=== PATIENT | male | born 1990 | race Caucasian/White ===

== ENCOUNTER 2023-03-22 09:02 | Outpatient (AMB) | payer BC, SELFPAY ==
--- NOTE | 2023-03-22 09:06 | MHC.PC.OV ---
Vital Signs 03/22/23 09:09 Height 5 ft 10 in Weight 273 lb 8 oz BMI 39.2 BP 124/70 Blood Pressure Location Rt brachial Position Sitting Respiration 12 Pulse 70 Pulse Source Pulse Oximeter Temp 97.9 F Temp Source Oral Pulse Oximetry (%) 99 Intake Visit Reasons: New patient-Requesting physical Intake Note: Patient is here as a new patient, concerned about snoring. Would like to get a sleep study. Allergies Penicillins Allergy (Unknown, Verified 03/22/23 09:46) Unknown Sulfa (Sulfonamide Antibiotics) Allergy (Unknown, Verified 03/22/23 09:46) unkown Medication List - Last Reconciled 03/22/23 by Raheem Cueto CNP No Known Home Meds Tobacco use date assessed: 03/22/23 Dental Screening Dental Screen Date: 03/22/23 Did you have a dental visit in the last 12 months?: Yes Did you have a dental problem in the last 6 months where you did not have access to dental care?: No Was dental information given to patient?: Patient has dentist HPI HPI Comments History of Present Illness Details 32-year-old male presents to establish care He notes he was last evaluated by his former PCP, [facility], and had blood work done 4 years ago No significant PMH Not on prescription medication He notes that his girlfriend complains about his snoring during his sleep. He notes he has been snoring for the past 3-4 years. He states he is sexually active, in a monogamous relationship, and has no concerns for STD. [facility] Medical History (Updated 03/22/23 @ 10:11 by Raheem Cueto CNP) Thumb injury High blood pressure Family History (Updated 03/22/23 @ 09:22 by Sarah Diamond CMA) Mother High blood pressure High cholesterol Kidney stones Mental health disorder Father High blood pressure Paternal Uncle Substance abuse Maternal Uncle Substance abuse Paternal Aunt Mental health disorder Social History Housing: House Patient Tobacco Use Status: Never used Tobacco e-Cigarette/Vaping Use: Never Used service: No Current occupational status: employed Current occupation: [employer] Cognitive needs: No Hearing needs: No Vision needs: Yes (wears prescription glasses) Questionnaire PHQ-9 Over the last 2 weeks, how often have you been bothered by any of the following problems? 1. Little interest or pleasure in doing things: several days 2. Feeling down, depressed, or hopeless: not at all 3. Trouble falling or staying asleep, or sleeping too much: several days 4. Feeling tired or having little energy: several days 5. Poor appetite or overeating: not at all 6. Feeling bad about yourself - or that you are a failure or have let yourself or your family down: not at all 7. Trouble concentrating on things, such as reading the newspaper or watching television: not at all 8. Moving or speaking so slowly that other people could have noticed. Or the opposite - being so fidgety or restless that you have been moving around a lot more than usual: not at all 9. Thoughts that you would be better off or of hurting yourself in some way: not at all Total score: 3 Depression Screening Interpretation: Negative Source: Developed by Drs. Kevin Mcdaniel, Casi Reyez, Khai Harper and colleagues, with an educational ira from [employer]. Thrive Questionnaire I am a: Patient What is your living situation today?: I have a steady place to live Within the past 12 months, did the food you bought not last and you didn't have the money to get more?: Never true Within the past 12 months, did you worry whether your food would run out before you got money to buy more?: Never true Do you have trouble paying for medicines?: No Do you have trouble getting transportation to medical appointments?: No Do you have trouble paying your heating and electricity bill?: No Do you have trouble taking care of your child, family member or friend?: No Do you have trouble with day-to-day activities such as bathing, preparing meals, shopping, managing finances, etc.?: No Are you currently unemployed and looking for a job?: No Are you interested in more education?: No AUDIT C Alcohol Use Questionnaire (AUDIT-C) 1. How often do you have a drink containing alcohol?: Monthly or less 2. How many drinks containing alcohol do you have on a typical day when you are drinking?: 1 or 2 3. How often do you have six or more drinks on one occasion?: Never Total Score: 1 KLAUDIA-7 AMB Questionnaire KLAUDIA-7 Feeling nervous, anxious, or on edge: 1 = Several days Not being able to stop or control worryin = Several days Worrying too much about different things: 1 = Several days Trouble relaxin = Not at all Being so restless that it is hard to sit still: 0 = Not at all Becoming easily annoyed or irritable: 1 = Several days Feeling afraid as if something awful might happen: 0 = Not at all Total KLAUDIA-7 score (0-4 normal; 5-9 mild; 10-14 moderate; 15-21 severe): 4 Source: Developed by Drs. Kevin Mcdaniel, Casi Reyez, Khai Harper and colleagues, with an educational ira from [employer]. Review of Systems Const Details: Denies chills, Denies fatigue, Denies fever(s), Denies headache(s) and Denies weakness HEENT Denies change in vision, Denies dizziness, Denies headache(s), Denies hearing loss, Denies nasal congestion, Denies sinus pain, Denies sinus pressure and Denies sore throat Card Denies chest pain, Denies lightheadedness, Denies dyspnea and Denies other (palpitations) Resp Denies cough, Denies dyspnea and Denies wheezing GI Denies abdominal pain, Denies melena, Denies hematochezia, Denies change in bowel habits, Denies dyspepsia and Denies nausea Denies hematuria and Denies dysuria Musc Denies abnormal gait, Denies myalgias, Denies arthralgias, Denies numbness and Denies tingling Skin/Breast Denies rash, Denies unusual bruising and Denies wounds Neuro Denies abnormal gait, Denies dizziness, Denies headache(s), Denies memory loss, Denies numbness, Denies Sensory deficit (Neuro), Denies tingling and Denies weakness Psych Denies anxiety, Denies depression and Denies memory loss Endo Denies cold intolerance, Denies fatigue, Denies heat intolerance, Denies polydipsia and Denies polyuria Luis/Lymph Denies easy bleeding and Denies easy bruising Aller/Immun Denies wheezing Physical exam (Primary Care) Vital Signs: Last Vital Signs Temp 97.9 F 03/22/23 09:09 Pulse 70 03/22/23 09:09 Resp 12 03/22/23 09:09 BP 124/70 03/22/23 09:09 Pulse Ox 99 03/22/23 09:09 BMI result Body Mass Index 39.2 Tobacco/Smoking Status: Tobacco use Status Tobacco use date assessed 03/22/23 03/22/23 09:27 Patient Tobacco Use Status Never used Tobacco 03/22/23 09:27 e-Cigarette/Vaping Use Never Used 03/22/23 09:27 PHQ-9: PHQ-9 Score PHQ-9: Total score 3 03/22/23 09:27 Depression Screening Interpretation: Negative Const Other: General: no acute distress, well developed, alert and awake Nutritional Appearance: well nourished Orientation/consciousness: patient oriented x3 HENMT Head: Yes normocephalic and Yes atraumatic Ears: hearing grossly normal bilaterally and TM's normal bilaterally General nose exam: Normal external nose present and Normal nares present Mouth: Normal oral and palatal mucosa present and moist mucous membranes Teeth and gingiva: dentition normal Throat: Yes oropharynx normal Eyes Pupils: Equal, round and reactive pupils present and Pupil accommodation reflex normal EOM: EOMs intact bilaterally Neck Neck: Yes normal visual inspection, Yes no lymphadenopathy and Yes trachea midline Thyroid: Thyroid normal Carotids: no bruits Lymphatic: no lymphadenopathy noted Chest Chest palpation & inspection: normal inspection of the chest Resp Effort & Inspection: normal respiratory effort Auscultation: clear to auscultation bilaterally Cardio Rate: regular rate Rhythm: regular rhythm Heart sounds: S1 normal heart sound present, S2 normal heart sound present, no gallops, no murmurs and no rubs Bruits: no abdominal aortic bruits and no carotid bruits GI Palpation (GI): No Abdominal aortic bruit present, Soft to palpation, nontender, No hepatosplenomegaly present and No Rebound tenderness present Auscultation: normal bowel sounds General: Yes no CVA tenderness Back/Spine/Pelvis Back: no CVA tenderness Cervical Spine: cervical ROM normal and No Cervical spine tenderness Thoracic/Lumbar Spine: thoraco-lumbar ROM normal, No pain with thoraco-lumbar ROM, No thoracic spinal tenderness and No lumbar spinal tenderness Skin General: warm and dry. Normal skin color. Normal skin turgor Lesions: no lesions Rashes: no rashes Trauma: no lacerations or abrasions Wounds: no wounds Nails: normal Neuro General: patient oriented x3, gait normal and CN's II-XI intact bilaterally Cranial nerves: Yes Equal, round and reactive pupils present Cognition (Neuro): normal cognition Gait exam (Neuro): Normal gait present Motor exam (neuro): 5/5 motor strength present throughout Sensory Exam: No Sensory deficit (Neuro) Deep tendon reflexes (DTR's): Right patellar reflex intensity grade: 2+ and Left patellar reflex intensity grade: 2+ Extrem General: Yes normal to inspection, No edema and No calf tenderness Psych Appearance: grossly normal Affect: normal affect Attitude: cooperative Thought process: Normal thought process present Assessment and Plan Assessment & Plan (1) Normal routine history and physical examination: Code(s): Z00.00 - Encounter for general adult medical examination without abnormal findings Plan: No significant physical restrictions or limitations noted Advised to get routine blood work done and schedule a telehealth visit for labs review Return with symptoms or concerns Verbalized understanding and agreed with treatment plan. (2) Snoring: Code(s): R06.83 - Snoring Plan: He notes that his girlfriend complains about his snoring during his sleep. He notes he has been snoring for the past 3-4 years. Referred to sleep medicine Follow-up with worsening or new since Verbalized understanding and agreed with treatment plan. (3) Obesity (BMI 35.0-39.9 without comorbidity): Code(s): E66.9 - Obesity, unspecified Plan: He weighs 273 lb, BMI is 39.2 He notes he does not exercise regularly Healthy dietary choices and routine exercise encouraged Informed that weight reduction may reduce snoring Referred to dietitian/principal investigator Return with symptoms or concerns Verbalized understanding and agreed with treatment plan. (4) Laboratory tests ordered as part of a complete physical exam (CPE): Code(s): Z00.00 - Encounter for general adult medical examination without abnormal findings Plan: Fasting labs ordered as part of a complete physical exam. Advised to fast for at least 10 hours before getting labs drawn. May drink water Verbalized understanding and agreed with treatment plan. Orders: Orders Comprehensive [place]. Panel Fast Today Z00.00 - Encounter for general adult medical examination without abnormal findings TSH reflex Free T4 Today Z00.00 - Encounter for general adult medical examination without abnormal findings UA CC w/rflx Micro + Cult Today Z00.00 - Encounter for general adult medical examination without abnormal findings Complete Blood Count Auto Diff Today Z00.00 - Encounter for general adult medical examination without abnormal findings Lipid Panel Today Z00.00 - Encounter for general adult medical examination without abnormal findings Referrals Nutrition/Dietitian Referral E66.9 - Obesity, unspecified Sleep Medicine Referral R06.83 - Snoring Coding Level of Care Code New Pt [facility] Care [id number]([id number] Diagnoses Normal routine history and physical examination Z00.00 Snoring R06.83 Obesity (BMI 35.0-39.9 without comorbidity) E66.9 Laboratory tests ordered as part of a complete physical exam (CPE) Z00.00
[2023-03-22 09:09] VITALS: BP 124/70; PULSE 70; RESP 12; TEMP 36.6; O2SAT 99; BMI 39.2
== END 2023-03-22 10:04 | disposition home or self-care (01) ==
PROVIDERS: PCP Nurse Practitioner Family; Visit Provider Nurse Practitioner Family
DX: Z00.00 Encounter for general adult medical examination without abnormal findings (principal); R06.83 Snoring; E66.9 Obesity, unspecified; Z68.39 Body mass index [BMI] 39.0-39.9, adult
CPT/HCPCS: 99385

== ENCOUNTER 2023-04-04 07:37 | Outpatient (REF) | payer BC, SELFPAY | END 2023-04-04 07:38 | disposition home or self-care (01) | LOC: HO.WFDLDS 07:37 | PROVIDERS: Visit Provider Nurse Practitioner Family | DX: Z00.00 Encounter for general adult medical examination without abnormal findings (principal) | CPT/HCPCS: 36415; 80053; 80061; 81003; 84443; 85025 ==

== ENCOUNTER 2023-05-03 08:27 | Outpatient (AMB) | payer BC, SELFPAY ==
[2023-05-03 08:31] VITALS: BMI 39.1
--- NOTE | 2023-05-03 08:31 | MHC.AMNUTRGE ---
Intake VS Expanded 05/03/23 08:31 05/08/23 14:34 Height 5 ft 10 in 5 ft 10 in Weight 272 lb 11.389 oz 273 lb BMI 39.1 39.2 Intake Visit Reasons: Obesity Allergies Penicillins Allergy (Unknown, Verified 03/22/23 09:46) Unknown Sulfa (Sulfonamide Antibiotics) Allergy (Unknown, Verified 03/22/23 09:46) unkown HPI Nutrition Presentation Details Pt presents for MNT for obesity Pt reports meal planning challenges related to long commutes etoh: occ smoking: denies fruits/d: 0 -1/d vegetables: once/d fish: once/wk dairy: 5 + fried foods: 3-4 x/wk pastries and similar >2 per day beverages: water, juice, soda 40 oz/d physical activity: daily life activities INO-Xexyoiv-Dw.Jeor Equation Height 5 ft 10 in Weight 273 lb Resting Metabolic Rate 2200.80 Calculated Activity Level Sedentary Calories Needed to Maintain Weight 2640.96 Diagnosis Nutrition problem #1 excessive energy intake As related to (etiology) #1 diagnosis As evidenced by (sign/symptom) #1 high BMI (39.2 on 04/2023) Monitoring/Goals Nutrition problem monitoring level of knowledge/skill, total CHO intake and weight Nutrition goal/outcome wt loss 5lbs in 2 months Learning/Education Readiness to learn good Stages of change preparation Educational materials provided Yes (meal planning , reducing fat/carbs) Most Recent Diabetes Results: Cholesterol 163 mg/dL (<200) 04/04/23 HDL Cholesterol 28 mg/dL (>40) L 04/04/23 Triglycerides 90 mg/dL (<150) 04/04/23 Creatinine 0.83 mg/dL (0.5-1.4) 04/04/23 Blood Urea Nitrogen 14 mg/dL (9-16) 04/04/23 Sodium 137 mmol/L (135-145) 04/04/23 Potassium 4.0 mmol/L (3.3-5.1) 04/04/23 Chloride 103 mmol/L (96-108) 04/04/23 Carbon Dioxide 25 mmol/L (22-29) 04/04/23 Calcium 9.7 mg/dL (8.4-10.2) 04/04/23 AST 31 U/L (5-37) 04/04/23 ALT 51 U/L (0-40) H 04/04/23 Total Protein 8.2 g/dL (6.5-8.0) H 04/04/23 Albumin 4.6 g/dL (3.5-5.0) 04/04/23 [facility] Medical History (Updated 03/22/23 @ 10:11 by Raheem Cueto CNP) Thumb injury High blood pressure Family History (Updated 03/22/23 @ 09:22 by Sarah Diamond [facility]) Mother High blood pressure High cholesterol Kidney stones Mental health disorder Father High blood pressure Paternal Uncle Substance abuse Maternal Uncle Substance abuse Paternal Aunt Mental health disorder Social History Housing: House Patient Tobacco Use Status: Never used Tobacco e-Cigarette/Vaping Use: Never Used service: No Current occupational status: employed 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 Cognitive needs: No Hearing needs: No Vision needs: Yes (wears prescription glasses) Assessment & Plan Assessment & Plan (1) Obesity (BMI 35.0-39.9 without comorbidity): Code(s): E66.9 - Obesity, unspecified Plan: wt: 124kg Est kcal needs as per MSJ: 2600 (40% carb, 30% protein/fat) Est fluid needs as per 25-30 ml/d: 3100- 3700 Est prot per day as per 1 g/kg bw: 124 Recommend fiber intake : 8-10 g per day and gradually increase to 25-28 g per day for women and 35-38 g for men or as tolerated Recommend sodium intake per day : less than 2000 mg Educated patient on: ( R = reviewed V = verbalizes understanding N/R = needs review N/A = not applicable Food sources of carbohydrate, adequate serving sizes and its role in various health conditions: R Differences between complex carbohydrates a simple carbohydrates, role of fiber in diet: R Differences between types of fats and role in diet (mono on saturated fat fatty acids, saturated fatty acids, trans fats): R Food sources of sodium in salt and healthy modifications for heart health in kidney health: R Vitamins and minerals: R Healthy plate method concept: R Physical activity: Benefits a precaution: R Patient Instructions: Reduce total carbohydrate to 80 g following healthy plate method Choose lower fat food options (baked insteado f fried or deep fried) see meal 2600 call meal plan ideas Coding Level of Care Code Nutr Indiv Intake (65226) Diagnoses Obesity (BMI 35.0-39.9 without comorbidity) E66.9 Time Spent (min) 30
[2023-05-08 14:34] VITALS: BMI 39.2
== END 2023-05-03 09:10 | disposition home or self-care (01) ==
PROVIDERS: PCP Nurse Practitioner Family; Visit Provider Dietitian, Registered
DX: E66.9 Obesity, unspecified (principal)

== ENCOUNTER → 2023-05-03 08:27 | Outpatient (BNVA) | payer BC, SELFPAY | PROVIDERS: PCP Nurse Practitioner Family; Visit Provider Dietitian, Registered | DX: E66.9 Obesity, unspecified (principal); Z68.39 Body mass index [BMI] 39.0-39.9, adult; Z71.3 Dietary counseling and surveillance | CPT/HCPCS: 97802 ==

== ENCOUNTER 2023-05-31 08:07 | Outpatient (AMB) | payer BC, SELFPAY ==
[2023-05-31 08:15] VITALS: BP 130/84; PULSE 86; O2SAT 98; BMI 39.2
--- NOTE | 2023-05-31 08:15 | MHC.OFFVIS ---
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 witnessed apnea and snoring and excessive daytime sleepiness Allergies Penicillins Allergy (Unknown, Verified 05/31/23 08:18) Unknown Sulfa (Sulfonamide Antibiotics) Allergy (Unknown, Verified 05/31/23 08:18) unkown HPI HPI Comments History of Present Illness Details 33 y/o male patient presents for new in-person visit for sleep consultation. Pt reports loud snoring and witnessed apnea spells. He needs to sleep on his futon sofa bed due to loud snoring. He uses nasal strip, and it helps a little. Pt reports non refreshing, quality sleep with daytime sleepiness. He needs to drink 36 oz of coffee daily to stay awake. He gained 60 lb over the last 3 years. Sleep questionnaire: Have you ever been diagnosed with a sleep disorder? No. Have you ever had a sleep study in the past? No. Have you ever been treated for a sleep disorder? No. Do you take medications for a sleep disorder? No. Do you snore? Yes. Do you wake up gasping at night? Yes. Do you have episodes of apneas? Yes. If yes, are they witnessed? Yes, by his girl friend. Do you have episodes of nocturnal chest pain or dyspnea? No. Do you have difficulty initiating sleep? No. Do you have difficulty maintaining sleep? get up 1-2 times at night. Do you wake up tired? Yes. Do you have headaches upon awakening? No. Do you wake up with dry mouth or throat? Yes. Do you have GERD? No. Do you have nocturia? 1-2 at night. Do you have nocturnal leg cramps? No. Do you have symptoms of restless legs? No. Do you act out your dreams? No. Sleep hygiene questionnaire: What is your usual sleep routine? Usual bedtime is at 11-12 am; Usual wake up time is at 7:30 am. Do you take naps? No. Is your sleep environment cool, dark, and quiet? Yes. Do you exercise? Yes, going to gym 3-4/weeks. Do you take caffeine or other stimulants? Yes, 3 cups of coffee, the last drink usually 4 pm. Do you use electronics in bed? Yes. What is your work schedule? 9 am to 5-7 pm. Hypersomnolence questionnaire: Do you have daytime tiredness or fatigue? Yes. Do you easily fall asleep when inactive? No. Have you ever had episodes of sudden weakness? No. Have you ever had episodes of sudden weakness associated with strong emotions? No. 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 needs: No Hearing needs: No Vision needs: Yes (wears prescription glasses) Review of Systems Const All systems reviewed & are unremarkable except as noted in HPI and below Physical Exam Vital Signs: Last Vital Signs Pulse 86 05/31/23 08:15 BP 130/84 05/31/23 08:15 Pulse Ox 98 05/31/23 08:15 Oxygen Delivery Method Room Air 05/31/23 08:15 BMI result Body Mass Index 39.2 Const General: cooperative and healthy appearing Nutritional Appearance: obese Orientation/consciousness: patient oriented x3 Neck Neck: Yes full ROM and Yes supple Resp Effort & Inspection: normal respiratory effort and able to speak in complete sentences Neuro General: patient oriented x3 Cognition (Neuro): normal cognition Gait exam (Neuro): Normal gait present Motor exam (neuro): 5/5 motor strength present throughout, Pronator motor function not present and no tremor noted Assessment & Plan Assessment & Plan (1) Obesity (BMI 35.0-39.9 without comorbidity): Code(s): E66.9 - Obesity, unspecified (2) Snoring: Code(s): R06.83 - Snoring (3) Daytime sleepiness: Code(s): R40.0 - Somnolence (4) Witnessed apneic spells: Code(s): R06.81 - Apnea, not elsewhere classified Plan Pt is advised to undergo home sleep study to assess for sleep apnea. Will f/u with pt after study to discuss results and appropriate treatment options. Sleep hygiene education provided. Limit late evening caffeine intake and electronic use. Wt reduction advised. Pt to call with any worsening concerns or questions. Coding Level of Care Code New Pt Level 3 (83019) Diagnoses Obesity (BMI 35.0-39.9 without comorbidity) E66.9 Snoring R06.83 Daytime sleepiness R40.0 Witnessed apneic spells R06.81
== END 2023-05-31 08:43 | disposition home or self-care (01) ==
PROVIDERS: PCP Nurse Practitioner Family; Visit Provider Nurse Practitioner Family
DX: E66.9 Obesity, unspecified (principal); R06.83 Snoring; R40.0 Somnolence; R06.81 Apnea, not elsewhere classified
CPT/HCPCS: 99203

== ENCOUNTER → 2023-05-31 08:07 | Outpatient (BNVA) | payer BC, SELFPAY | PROVIDERS: PCP Nurse Practitioner Family; Visit Provider Nurse Practitioner Family ==

== ENCOUNTER → 2023-06-26 09:08 | Outpatient (BNVA) | payer BC, SELFPAY | PROVIDERS: PCP Nurse Practitioner Family; Visit Provider Dietitian, Registered ==

== ENCOUNTER → 2023-10-11 15:54 | Outpatient (REF) | payer OTHER, SELFPAY | LOC: HO.SL 15:54 | PROVIDERS: PCP Nurse Practitioner Family; Visit Provider Nurse Practitioner Family | DX: Z13.89 Encounter for screening for other disorder (principal) ==

== ENCOUNTER 2024-03-14 14:20 | Outpatient (AMB) | payer OTHER, SELFPAY ==
--- NOTE | 2024-03-14 14:28 | MHC.OFFVIS ---
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 Pt denies any significant interval medical history changes. Pt reports he did HST in September, however no results are available today. Pt has had an intentional 35 lb weight loss since Jun 2023- by means of diet and exercise. Since, he has been having less snoring and no gasping arousals. He is scheduled to undergo deviated septum repair through ENT in May. 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 Cognitive needs: No Hearing needs: No Vision needs: Yes (wears prescription glasses) Physical Exam Vital Signs: Last Vital Signs Pulse 69 03/14/24 14:29 BP 118/80 03/14/24 14:29 Pulse Ox 98 03/14/24 14:29 BMI result Body Mass Index 33.9 Const General: no acute distress Orientation/consciousness: patient oriented x3 HEENT Other: Mallampati stage Resp Effort & Inspection: normal respiratory effort and able to speak in complete sentences Neuro General: patient oriented x3 Psych Mental Status: mental status grossly normal Speech and movement: Clear speech present Attitude: cooperative Assessment & Plan Assessment & Plan (1) Daytime sleepiness: Code(s): R40.0 - Somnolence Category: Medical (2) Witnessed apneic spells: Code(s): R06.81 - Apnea, not elsewhere classified Category: Medical (3) Snoring: Code(s): R06.83 - Snoring Category: Medical Plan I have reached out to sleep entry level lab technician to request status of HST report Once received, will calll pt. Will cc: note to ENT, Dr Vidal in [facility]. If HST did not record enough data, consider repeating HST prior to upcoming ENT surgery. Will follow-up upon review of above and patient to follow-up in clinic in 6 months or sooner prn. Coding Level of Care Code Est Pt Level 3 (10844) Diagnoses Daytime sleepiness R40.0 Witnessed apneic spells R06.81 Snoring R06.83
[2024-03-14 14:29] VITALS: BP 118/80; PULSE 69; O2SAT 98; BMI 33.9
== END 2024-03-14 15:09 | disposition home or self-care (01) ==
PROVIDERS: PCP Nurse Practitioner Family; Visit Provider Nurse Practitioner Family
DX: R40.0 Somnolence (principal); R06.81 Apnea, not elsewhere classified; R06.83 Snoring
CPT/HCPCS: 99213

== ENCOUNTER → 2024-03-14 14:20 | Outpatient (BNVA) | payer OTHER, SELFPAY | PROVIDERS: PCP Nurse Practitioner Family; Visit Provider Nurse Practitioner Family ==